=== PATIENT | male | born 1975 | race Caucasian/White ===

== ENCOUNTER 2019-10-15 20:34 | Inpatient (IN) | payer MEDICAID ==
[~2019-10-15] VITALS: Ht 195.6 cm; Wt 113.4 kg
[~2019-10-15 20:34] MED LIST: BUPR100T71; OME40GT
[2019-10-15] MEDS ORDERED: LIDOCAINE VISCOUS 2% 15ML UD PO ONE (21:45)
[2019-10-15] MEDS ORDERED: FAMOTIDINE 20 MG TAB PO ONE (21:45)
[2019-10-15] MEDS ORDERED: ALUM & MAG HYDROX-SIMETH LIQ(MAALOX) 30 ML PO ONE (21:45)
[2019-10-15] MEDS ORDERED: DONNATAL 5ml ORAL Elix (BELLADONNA ALK-PHENOBARB) PO ONE (21:45)
[2019-10-15 22:04] LABS: Amphetamine Screen, Urine NEGATIVE (NEGATIVE); Barbiturate Scree,Urine NEGATIVE (NEGATIVE); Benzodiazephine Screen, Urine NEGATIVE (NEGATIVE); Cannabinoid Screen, Urine NEGATIVE (NEGATIVE); Cocaine Screen, Urine NEGATIVE (NEGATIVE); Opiate Scree,Urine NEGATIVE (NEGATIVE); Phencyclidine Screen, Urine NEGATIVE (NEGATIVE)
[2019-10-15 22:12] LABS: Alcohol, Urine < 3.0 mg/dL (0-5)
[2019-10-15 22:19] LABS: Basophils # (auto) 0.1 10 ^3/uL (0-0.2); Basophils % (auto) 0.8 % (0.0-2.0); Eosinophils # (auto) 0.1 10 ^3/uL (0-0.8); Hematocrit 43.4 % (41.0-53.0); Lymphocytes # (auto) 2.1 10 ^3/uL (0.4-5.4); Mean Corpuscular Hgb Conc. 34.5 g/dL (32.0-36.0); Mean Corpuscular Volume 92.7 fL (80.0-100.0); Monocytes # (auto) 0.5 10 ^3/uL (0-1.3); Monocytes % (auto) 5.5 % (0.0-12.0); Neutrophils # (auto) 5.9 10 ^3/uL (1.6-8.6); Neutrophils % (auto) 68.7 % (37.0-80.0); Platelet Count (auto) 186 10^3/uL (140-450); Red Blood Cells 4.68 10^6/uL (4.5-5.90); Red Cell Distribution Width 12.9 % (11.8-14.3); White Blood Cell 8.6 10^3/uL (4.4-10.8)
[2019-10-15 22:33] LABS: Urine Bacteria NONE SEEN /hpf (None Seen); Urine Blood Negative /uL (Negative); Urine Specific Gravity 1.018 (1.001-1.035); Urine Sperm PRESENT /hpf (None Seen); Urine WBC <1 /hpf (0 - 3)
[2019-10-15 22:36] LABS: Albumin 4.3 g/dL (3.4-5.0); Calcium 8.9 mg/dL (8.5-10.1); Potassium 3.9 mmol/L (3.5-5.1)
[2019-10-15 22:41] LABS: BUN/Creatinine Ratio 11.7; Bilirubin, Total 0.5 mg/dL (0.2-1.0); Total Protein 8.2 g/dL (6.4-8.2)
[2019-10-15] MEDS ORDERED: SODIUM CHLORIDE 0.9% 1,000 ML IV ONE (23:00)
[2019-10-15] MEDS ORDERED: cefTRIAXone 1GM/50ML D5W 50 ML IV ONE (23:15)
[2019-10-15] MEDS ORDERED: KETOROLAC TROMETH 15 mg/ml 1ML VL IV ONE (23:30)
[2019-10-16] VITALS (8 sets, daily range): BP systolic 100–136; BP diastolic 59–81
[2019-10-16] MEDS ORDERED: MORPHINE SULFATE 4 MG/ML SYR/VIAL IV PRN (00:15)
[2019-10-16] MEDS ORDERED: ONDANSETRON HCL 4 MG/2 ML VIAL IV PRN ×2 (00:15→16:30)
[2019-10-16] MEDS ORDERED: DOCUSATE SOD 100 MG CAP PO PRN (00:15)
[2019-10-16] MEDS ORDERED: ACETAMINOPHEN 325 MG TAB PO PRN (00:15)
[2019-10-16] MEDS: SODIUM CHLORIDE 0.9% 1,000 ML IV SCH ×3 (01:24→21:24)
[2019-10-16] MEDS: HYDROcodone-ACET 5/325MG TAB PO PRN ×2 (01:24→10:19)
[2019-10-16 06:19] LABS: Basophils # (auto) 0.1 10 ^3/uL (0-0.2); Basophils % (auto) 0.8 % (0.0-2.0); Eosinophils # (auto) 0.1 10 ^3/uL (0-0.8); Eosinophils % (auto) 1.8 % (0.0-7.0); Hematocrit 40.9 % (41.0-53.0); Hemoglobin 13.9 g/dL (13.5-17.5); Lymphocytes # (auto) 1.8 10 ^3/uL (0.4-5.4); Lymphocytes % (auto) 26.2 % (10.0-50.0); Mean Corpuscular Hemoglobin 31.5 pg (28.0-32.0); Mean Corpuscular Hgb Conc. 33.9 g/dL (32.0-36.0); Mean Corpuscular Volume 92.7 fL (80.0-100.0); Monocytes # (auto) 0.5 10 ^3/uL (0-1.3); Neutrophils # (auto) 4.3 10 ^3/uL (1.6-8.6); Neutrophils % (auto) 64.2 % (37.0-80.0); Nucleated Red Blood Cells % 0.1 %; Platelet Count (auto) 178 10^3/uL (140-450); Red Blood Cells 4.42 10^6/uL (4.5-5.90); Red Cell Distribution Width 13.2 % (11.8-14.3); White Blood Cell 6.8 10^3/uL (4.4-10.8)
[2019-10-16] MEDS ORDERED: PERCOT PO (06:22)
[2019-10-16 06:38] LABS: BUN/Creatinine Ratio 12.5; Calcium 8.3 mg/dL (8.5-10.1)
[2019-10-16] MEDS: buPROPion HCL 100 MG TAB PO SCH (10:11)
[2019-10-16] MEDS: OMEPRAZOLE 40MG/20ML ORAL SUSP PO SCH ×2 (10:13→21:24)
[2019-10-16] MEDS: PIPERACILLIN-TAZOB 3.375GM 100 ML IV SCH ×3 (11:45→23:31)
[2019-10-16 12:26] LABS: INR 1.09 (0.9-1.15); Partial Thromboplastin Time 33.2 sec (23.64-32.05)
[2019-10-16 13:21] LABS: Cholesterol 107 mg/dL (< 200)
[2019-10-16 13:23] LABS: HDL Cholesterol 32 mg/dL (40-59); LDL Cholesterol 64 mg/dL (< 100); Triglycerides 74 mg/dL (< 150)
[2019-10-16] MEDS ORDERED: SUCCINYLCHOLINE CHLORIDE 20 MG/ML 10ML VIAL IV ONE (14:31)
[2019-10-16] MEDS ORDERED: BUPIVACAINE 0.25% INJ 50ML VIAL ONE (15:05)
[2019-10-16] MEDS ORDERED: LIDOCAINE 1% HCL (LOCAL ANESTH.) INJ 20ML MDV ONE (15:05)
[2019-10-16] MEDS ORDERED: MEPERIDINE HCL (50 MG/ML) 1 ML VIAL ONE (15:34)
[2019-10-16] MEDS ORDERED: fentaNYL CITRATE 100 MCG/2 ML VL ONE (15:34)
[2019-10-16] MEDS ORDERED: MIDAZOLAM HCL 1MG/1ML-2 ML VIAL ONE (15:34)
[2019-10-16] MEDS ORDERED: GLYCOPYRROLATE 0.2 MG/ML 1ML VIAL IV ONE (15:35)
[2019-10-16] MEDS ORDERED: NEOSTIGMINE 1 MG/ML INJ (10mg/10ML VIAL) IV ONE (15:35)
[2019-10-16] MEDS ORDERED: ceFAZolin 1GM/50ML 50 ML IV ONE ×2 (15:41→15:42)
[2019-10-16] MEDS ORDERED: DexAMETHasone SOD PHOS 10MG/1ML VIAL INJ ONE (16:01)
[2019-10-16] MEDS ORDERED: PROPOFOL 10 MG/ML 20 ML IV ONE (16:01)
[2019-10-16] MEDS ORDERED: ROCURONIUM 10MG/ML 10ML VIAL IV ONE (16:02)
[2019-10-16] MEDS ORDERED: MORPHINE SULF INJ 2 MG/ML SYRINGE 1ML IV PRN ×2 (16:30)
[2019-10-16] MEDS ORDERED: MIDAZOLAM HCL 1MG/1ML-2 ML VIAL IV PRN (16:30)
[2019-10-16] MEDS ORDERED: ePHEDrine SULFATE 50 MG/ML AMP IV PRN (16:30)
[2019-10-16] MEDS ORDERED: LABETALOL HCL 5 MG/ML ML 20ML VIAL IV PRN (16:30)
[2019-10-16] MEDS: HYDROmorphone HCL 2 MG/ML VL IV PRN ×2 (17:23→17:33)
[2019-10-17 05:46] VITALS: BP 115/72
[2019-10-17] MEDS: SODIUM CHLORIDE 0.9% 1,000 ML IV SCH (06:29)
[2019-10-17] MEDS: PIPERACILLIN-TAZOB 3.375GM 100 ML IV SCH ×2 (06:29→12:33)
[2019-10-17 06:58] LABS: Free T4 (Free Thyroxine) 1.02 ng/dL (0.89-1.76)
[2019-10-17 07:00] LABS: Folate (Folic Acid) 3.57 ng/mL (5.38-24); Hepatitis B Surface Antibody Negative
[2019-10-17 07:27] LABS: Hepatitis A Total Antibody Negative
[2019-10-17 08:00] VITALS: BP 123/74
[2019-10-17] MEDS: HYDROcodone-ACET 5/325MG TAB PO PRN (09:09)
[2019-10-17 09:12] VITALS: BP 123/74
[2019-10-17 10:43] LABS: Hepatitis B Core Total AB Negative; Hepatitis C Antibody Negative (Negative)
[2019-10-17] MEDS ORDERED: CYANOCOBALAMIN (B-12) 1000 MCG/1 ML VIAL SUBCUT ONE (10:45)
[2019-10-17] MEDS ORDERED: FOLIC ACID 1 MG TAB PO ONE (10:45)
[2019-10-17 11:06] LABS: Basophils # (auto) 0 10 ^3/uL (0-0.2); Basophils % (auto) 0.3 % (0.0-2.0); Eosinophils # (auto) 0 10 ^3/uL (0-0.8); Eosinophils % (auto) 0.1 % (0.0-7.0); Hematocrit 43.9 % (41.0-53.0); Lymphocytes # (auto) 1.2 10 ^3/uL (0.4-5.4); Lymphocytes % (auto) 10.1 % (10.0-50.0); Mean Corpuscular Hemoglobin 31.7 pg (28.0-32.0); Mean Corpuscular Hgb Conc. 34.2 g/dL (32.0-36.0); Mean Corpuscular Volume 92.7 fL (80.0-100.0); Monocytes # (auto) 0.7 10 ^3/uL (0-1.3); Monocytes % (auto) 5.9 % (0.0-12.0); Neutrophils # (auto) 9.6 10 ^3/uL (1.6-8.6); Neutrophils % (auto) 83.6 % (37.0-80.0); Platelet Count (auto) 206 10^3/uL (140-450); Red Blood Cells 4.74 10^6/uL (4.5-5.90); Red Cell Distribution Width 13.2 % (11.8-14.3); White Blood Cell 11.5 10^3/uL (4.4-10.8)
[2019-10-17] MEDS: buPROPion HCL 100 MG TAB PO SCH (11:10)
[2019-10-17 11:30] LABS: Albumin 3.6 g/dL (3.4-5.0); Calcium 8.7 mg/dL (8.5-10.1); Potassium 4.1 mmol/L (3.5-5.1)
[2019-10-17 11:34] LABS: BUN/Creatinine Ratio 8.5; Bilirubin, Total 0.6 mg/dL (0.2-1.0); Total Protein 7.2 g/dL (6.4-8.2)
[2019-10-17 11:35] LABS: Hepatitis B Surface Antigen Negative (Negative)
[2019-10-17 12:17] VITALS: BP 110/68
[2019-10-18] MEDS ORDERED: FOLIC ACID 1 MG TAB PO SCH (10:00)
[2019-10-18] MEDS ORDERED: CYANOCOBALAMIN (B-12) 1000 MCG/1 ML VIAL SUBCUT SCH (10:00)
== END 2019-10-17 15:59 | disposition home or self-care (01) | DRG 234 ==
LOC: ER 20:36 → WEST WING 20:37
PROVIDERS: ADMIT Hospitalist; ATTEND Internal Medicine
PROC: 0DTJ4ZZ Resection of Appendix, Percutaneous Endoscopic Approach (ICD-10-PCS; principal; 2019-10-16 15:48)
DX: K35.80 Unspecified acute appendicitis (principal); B19.10 Unspecified viral hepatitis B without hepatic coma; E66.9 Obesity, unspecified; G89.29 Other chronic pain; K29.70 Gastritis, unspecified, without bleeding; M54.9 Dorsalgia, unspecified; F41.9 Anxiety disorder, unspecified; F17.210 Nicotine dependence, cigarettes, uncomplicated; R53.83 Other fatigue; E53.8 Deficiency of other specified B group vitamins; K40.90 Unilateral inguinal hernia, without obstruction or gangrene, not specified as recurrent; K66.0 Peritoneal adhesions (postprocedural) (postinfection); Z79.899 Other long term (current) drug therapy
CPT/HCPCS: 36415; 71045; 74176; 76705; 80048; 80053; 80061; 80307; 81001; 82607; 82746; 83036; 83690; 83735; 84439; 84443; 85025; 85610; 85730; 86703; 86704; 86706; 86708; 86803; 86850; 86900; 86901; 87340; 88302; 96365; G0378; J0330; J0690; J0696; J1100; J2001; J2250; J2405; J2543; J2704; J3490

== ENCOUNTER 2019-11-12 21:25 | Emergency (ER) | payer MEDICAID ==
[~2019-11-12] VITALS: Ht 195.6 cm; Wt 104.3 kg
[~2019-11-12 21:25] MED LIST changes: +PERCOT PO
[2019-11-12 22:23] LABS: Basophils # (auto) 0.1 10 ^3/uL (0-0.2); Basophils % (auto) 0.8 % (0.0-2.0); Eosinophils # (auto) 0.1 10 ^3/uL (0-0.8); Eosinophils % (auto) 1.7 % (0.0-7.0); Hematocrit 46.9 % (41.0-53.0); Hemoglobin 16.1 g/dL (13.5-17.5); Lymphocytes # (auto) 1.7 10 ^3/uL (0.4-5.4); Lymphocytes % (auto) 19.8 % (10.0-50.0); Mean Corpuscular Hemoglobin 32.1 pg (28.0-32.0); Mean Corpuscular Hgb Conc. 34.4 g/dL (32.0-36.0); Mean Corpuscular Volume 93.2 fL (80.0-100.0); Monocytes # (auto) 0.6 10 ^3/uL (0-1.3); Monocytes % (auto) 6.9 % (0.0-12.0); Neutrophils # (auto) 6.1 10 ^3/uL (1.6-8.6); Neutrophils % (auto) 70.8 % (37.0-80.0); Platelet Count (auto) 225 10^3/uL (140-450); Red Blood Cells 5.03 10^6/uL (4.5-5.90); White Blood Cell 8.7 10^3/uL (4.4-10.8)
[2019-11-12 22:34] LABS: Urine Bacteria NONE SEEN /hpf (None Seen); Urine Blood Negative /uL (Negative); Urine Specific Gravity 1.001 (1.001-1.035); Urine WBC <1 /hpf (0 - 3)
[2019-11-12 22:38] LABS: INR 1.04 (0.9-1.15); Partial Thromboplastin Time 30.7 sec (23.64-32.05)
[2019-11-12 22:46] LABS: Albumin 4.2 g/dL (3.4-5.0); Calcium 9.1 mg/dL (8.5-10.1); Magnesium 2.5 mg/dL (1.6-2.6)
[2019-11-12 22:49] LABS: BUN/Creatinine Ratio 8.4; Bilirubin, Total 0.3 mg/dL (0.2-1.0); Total Protein 8.2 g/dL (6.4-8.2)
[2019-11-13] MEDS ORDERED: SODIUM CHLORIDE 0.9% 1,000 ML IV ONE (02:00)
[2019-11-13] MEDS ORDERED: IOHEXOL 300 MG/ML 100ML BOTTLE IJ ONE (02:10)
[2019-11-13 02:46] VITALS: BP 130/87
[2019-11-13] MEDS ORDERED: MAGNESIUM CITRATE SOLUTION 300 ML BTL PO ONE (04:15)
== END 2019-11-13 04:33 | disposition home or self-care (01) ==
LOC: ER 21:26
DX: K59.00 Constipation, unspecified (principal); F17.210 Nicotine dependence, cigarettes, uncomplicated; R51 Headache; R42 Dizziness and giddiness
CPT/HCPCS: 36415; 71045; 74177; 80053; 81001; 83605; 83735; 85025; 85610; 85730; 96360; 99285; J7030

== ENCOUNTER 2019-12-19 17:40 | Emergency (ER) | payer MEDICAID ==
[~2019-12-19] VITALS: Ht 195.6 cm; Wt 102.1 kg
[2019-12-19] MEDS ORDERED: CLINDAMYCIN 900MG IV 50 ML IV ONE (20:45)
[2019-12-19 21:29] LABS: Basophils # (auto) 0.1 10 ^3/uL (0-0.2); Basophils % (auto) 0.6 % (0.0-2.0); Eosinophils # (auto) 0.2 10 ^3/uL (0-0.8); Hematocrit 44.9 % (41.0-53.0); Hemoglobin 15.3 g/dL (13.5-17.5); Lymphocytes # (auto) 1.7 10 ^3/uL (0.4-5.4); Mean Corpuscular Hemoglobin 31.7 pg (28.0-32.0); Mean Corpuscular Hgb Conc. 34.1 g/dL (32.0-36.0); Monocytes # (auto) 0.5 10 ^3/uL (0-1.3); Monocytes % (auto) 6.5 % (0.0-12.0); Neutrophils # (auto) 5.6 10 ^3/uL (1.6-8.6); Neutrophils % (auto) 69.9 % (37.0-80.0); Nucleated Red Blood Cells % 0.1 %; Platelet Count (auto) 206 10^3/uL (140-450); Red Blood Cells 4.83 10^6/uL (4.5-5.90); Red Cell Distribution Width 12.6 % (11.8-14.3)
[2019-12-19 21:41] LABS: INR 1.06 (0.9-1.15)
[2019-12-19 21:45] LABS: Albumin 4.1 g/dL (3.4-5.0); Calcium 8.6 mg/dL (8.5-10.1); Potassium 4.1 mmol/L (3.5-5.1)
[2019-12-19 21:50] LABS: BUN/Creatinine Ratio 11.2; Bilirubin, Total 0.4 mg/dL (0.2-1.0); CRP High Sensitivity 0.32 mg/dL (< 0.3)
[2019-12-19 21:58] VITALS: BP 105/69
== END 2019-12-19 23:52 | disposition home or self-care (01) ==
LOC: ER 17:40
DX: K04.7 Periapical abscess without sinus (principal)
CPT/HCPCS: 36415; 70486; 80053; 83605; 85025; 85610; 85652; 86141; 87040; 96365; 99284; J3490